=== PATIENT | male | born 1955 | race Caucasian/White ===

== ENCOUNTER 2021-05-24 14:07 | Outpatient (CLI) | payer BC, SELFPAY ==
--- NOTE | ~2021-05-24 | US_ITS ---
EXAMINATION: US arterial ankle brachial ind EXAM DATE: 05/24/2021 14:41 INDICATION: Leg claudication. TECHNIQUE: Segmental pressures and plethysmographic and Doppler waveforms of the brachial and lower e xtremity arteries were obtained. There is no prior study for comparison. FINDINGS: Right and left brachial artery pressures of 147 mm Hg and 152 mm Hg, respectively, are concordant (no rmal difference <= 30 mmHg). RIGHT LEG: The ankle-brachial index (KERRY) is 0.98 (normal >= 0.9-1). The great toe-brachial index (TBI) is 0.64 (normal >= 0.65). The lower extremity ratios, segmental pressure gradients as follows; Dorsalis pedis: 0.91 (139 mmHg). Posterior tibial: 0.98 (149 mmHg). (Normal gradients <= 20-30 mmHg between adjacent levels on the same leg or the same levels on the two legs). Arterial waveforms are biphasic. LEFT LEG: The ankle-brachial index (KERRY) is 0.96 (normal >= 0.9-1). The great toe-brachial index (TBI) is 0.70 (normal >= 0.65). The lower extremity ratios, segmental pressure gradients as follows; Dorsalis pedis: 0.81 (123 mmHg). Posterior tibial: 0.96 (146 mmHg). (Normal gradients <= 20-30 mmHg between adjacent levels on the same leg or the same levels on the two legs). Arterial waveforms are biphasic. IMPRESSION: 1. Right ankle-brachial index 0.98. 2. Left ankle-brachial index 0.96. Reviewed, dictated and finalized at location B.
== END 2021-05-24 14:08 | disposition home or self-care (01) ==
LOC: ANHIMG 14:11
PROVIDERS: PCP Family Medicine Adolescent Medicine; Visit Provider Internal Medicine Cardiovascular Disease
DX: I73.9 Peripheral vascular disease, unspecified (principal)
CPT/HCPCS: 93922

== ENCOUNTER → 2025-06-27 15:47 | Outpatient (CLI) | payer MEDICARE, SELFPAY ==
--- NOTE | ~2025-06-27 | XR_ITS ---
XR cervical spine min 6V Indication: RT side neck pain for decades, no injury Comparison: None Findings: Moderate osteopenia. No acute fracture or subluxation. Moderate loss of disc height C4-5 C5-6 and C6-7 with narrowing of the foramina bilaterally at these levels. Soft tissues unremarkable Impression: No acute abnormality. Reviewed, dictated and finalized at location P. Impression: No acute abnormality.
--- NOTE | ~2025-06-27 | XR_ITS ---
EXAMINATION: XR knee LT 3V, 06/27/2025 16:03 CDT HISTORY: bilateral knee pain for decades, no trauma or injury COMPARISON: No comparisons available. Findings: No acute fracture or malalignment. Severe tricompartmental degenerative changes with small effusion Soft tissues unremarkable. Impression: No acute fracture or malalignment. Reviewed, dictated and finalized at location P. Impression: No acute fracture or malalignment.
--- NOTE | ~2025-06-27 | XR_ITS ---
EXAMINATION: XR hand LT min 3V, 06/27/2025 16:03 CDT HISTORY: bilateral hand pain for decades, no injury COMPARISON: No comparisons available. Findings: No acute fracture or malalignment. Severe degenerative changes of the first metacarpal carpal joint and the distal interphalangeal joints, no erosions are identified Soft tissues unremarkable. Impression: No acute fracture or malalignment. Reviewed, dictated and finalized at location P. Impression: No acute fracture or malalignment.
--- NOTE | ~2025-06-27 | XR_ITS ---
EXAMINATION: XR knee RT 3V, 06/27/2025 16:03 CDT HISTORY: bilateral knee pain for decades, no injury COMPARISON: No comparisons available. Findings: No acute fracture or malalignment. 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 Impression: No acute fracture or malalignment. Reviewed, dictated and finalized at location P. Impression: No acute fracture or malalignment.
--- NOTE | ~2025-06-27 | XR_ITS ---
EXAMINATION: XR hand RT min 3V, 06/27/2025 16:03 CDT HISTORY: bilateral hand pain for decades, no injury COMPARISON: No comparisons available. 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 Severe degenerative changes of the distal interphalangeal joints and the first metacarpal carpal joint, small erosions are noted. Soft tissues unremarkable. Impression: No acute fracture or malalignment. Reviewed, dictated and finalized at location P. Impression: No acute fracture or malalignment.
== END ==
PROVIDERS: PCP Family Medicine; Visit Provider Family Medicine
DX: M25.569 Pain in unspecified knee (principal); M19.90 Unspecified osteoarthritis, unspecified site; M54.2 Cervicalgia; M79.643 Pain in unspecified hand
CPT/HCPCS: 72052; 73130; 73562